=== PATIENT | male | born 1970 | race Caucasian/White ===

== ENCOUNTER 2021-05-27 15:04 | Emergency (ER) | payer OTHER ==
[2021-05-27] MEDS ORDERED: PREDNISONE 50 M50 MG PO (17:02)
[2021-05-27] MEDS ORDERED: CYCLOBENZAPRINE10 MG PO (17:03)
== END 2021-05-27 17:27 | disposition home or self-care (01) ==
LOC: ER1 15:04
DX: M54.12 Radiculopathy, cervical region (principal)
CPT/HCPCS: 96372; 99283; J1100; J1885

== ENCOUNTER 2021-06-23 15:55 | Emergency (ER) | payer OTHER ==
[~2021-06-23 15:55] MED LIST: CYCLOBENZAPRINE10 MG PO; PREDNISONE 50 M50 MG PO
== END 2021-06-23 16:53 | disposition left against medical advice (07) ==
LOC: ER1 15:55
DX: Z53.21 Procedure and treatment not carried out due to patient leaving prior to being seen by health care provider (principal)

== ENCOUNTER → 2021-10-24 | Outpatient (CLI) | payer OTHER | LOC: EXRD 14:03 | DX: J20.9 Acute bronchitis, unspecified (principal); R04.2 Hemoptysis; Z86.11 Personal history of tuberculosis | CPT/HCPCS: 71046 ==

== ENCOUNTER 2021-11-21 14:56 | Emergency (ER) | payer OTHER ==
[2021-11-21 18:02] LABS: HEMOGLOBIN 16.4 gm/dl (14.0-17.5); RED BLOOD COUNT 5.33 M/UL (4.20-5.50); WHITE BLOOD COUNT 13.2 K/UL (4.5-11.0)
[2021-11-21 19:06] LABS: BUN/CREATININE RATIO 35 (0-10)
[2021-11-21] MEDS ORDERED: DIABETA 2.5 MG2.5 MG PO (20:03)
[2021-11-21] MEDS ORDERED: DOXYCYCLINE HY100 MG PO (20:05)
[2021-11-21] MEDS ORDERED: PULMICORT FLEX90 MCG INH (20:05)
== END 2021-11-21 21:05 | disposition home or self-care (01) ==
LOC: ER1 14:56
PROVIDERS: Physician Assistant
DX: E11.65 Type 2 diabetes mellitus with hyperglycemia (principal); Z79.4 Long term (current) use of insulin; J44.9 Chronic obstructive pulmonary disease, unspecified; I10 Essential (primary) hypertension; F17.210 Nicotine dependence, cigarettes, uncomplicated; Z20.822 Contact with and (suspected) exposure to COVID-19
CPT/HCPCS: 71045; 80053; 82009; 82800; 82962; 85025; 96374; 99285; U0002

== ENCOUNTER → 2022-02-25 | Outpatient (CLI) | payer OTHER ==
[~2022-02-25] MED LIST changes: +DIABETA 2.5 MG2.5 MG PO; +DOXYCYCLINE HY100 MG PO; +PULMICORT FLEX90 MCG INH
== END ==
LOC: HEART 5 10:33
DX: J44.9 Chronic obstructive pulmonary disease, unspecified (principal)
CPT/HCPCS: 94060; 94729

== ENCOUNTER 2022-03-20 10:51 | Emergency (ER) | payer OTHER ==
[2022-03-20 13:02] LABS: HEMOGLOBIN 14.9 gm/dl (14.0-17.5); RED BLOOD COUNT 4.83 M/UL (4.20-5.50); WHITE BLOOD COUNT 10.5 K/UL (4.5-11.0)
[2022-03-20 13:20] LABS: BUN/CREATININE RATIO 27 (0-10)
[2022-03-20] MEDS ORDERED: CYCLOBENZAPRINE10 MG PO (14:32)
[2022-03-20] MEDS ORDERED: NAPROSYN500 MG PO (14:32)
== END 2022-03-20 14:55 | disposition home or self-care (01) ==
LOC: ER1 10:51
PROVIDERS: Physician Assistant
DX: M54.42 Lumbago with sciatica, left side (principal); E11.9 Type 2 diabetes mellitus without complications; I10 Essential (primary) hypertension; J44.9 Chronic obstructive pulmonary disease, unspecified; F17.200 Nicotine dependence, unspecified, uncomplicated
CPT/HCPCS: 80053; 81001; 82962; 85025; 96372; 99283; J1100; J1885

== ENCOUNTER → 2022-04-03 | Outpatient (CLI) | payer OTHER ==
[~2022-04-03] MED LIST changes: +NAPROSYN500 MG PO
== END ==
LOC: RAD 10:45
DX: M51.16 Intervertebral disc disorders with radiculopathy, lumbar region (principal)
CPT/HCPCS: 72110

== ENCOUNTER → 2022-05-02 | Outpatient (CLI) | payer OTHER | LOC: EMI 13:00 | DX: M51.26 Other intervertebral disc displacement, lumbar region (principal) | CPT/HCPCS: 72148 ==

== ENCOUNTER 2022-05-31 16:55 | Emergency (ER) | payer OTHER ==
[2022-05-31] MEDS ORDERED: CYCLOBENZAPRINE5 MG PO (22:25)
[2022-05-31] MEDS ORDERED: NAPROSYN500 MG PO (22:25)
== END 2022-05-31 23:24 | disposition home or self-care (01) ==
LOC: ER1 16:55
DX: M54.42 Lumbago with sciatica, left side (principal); G89.29 Other chronic pain; N39.8 Other specified disorders of urinary system; R06.2 Wheezing; Z87.39 Personal history of other diseases of the musculoskeletal system and connective tissue; E11.9 Type 2 diabetes mellitus without complications; I10 Essential (primary) hypertension; J44.9 Chronic obstructive pulmonary disease, unspecified; F17.200 Nicotine dependence, unspecified, uncomplicated; Z79.899 Other long term (current) drug therapy
CPT/HCPCS: 81001; 87086; 96374; 96375; 96376; 99283; J1170; J1885; J2270; J2405; J2930

== ENCOUNTER 2022-06-02 14:50 | Emergency (ER) | payer OTHER ==
[~2022-06-02 14:50] MED LIST changes: +CYCLOBENZAPRINE5 MG PO
[2022-06-02 16:17] LABS: RED BLOOD COUNT 5.14 M/UL (4.20-5.50); WHITE BLOOD COUNT 14.9 K/UL (4.5-11.0)
[2022-06-02 16:36] LABS: BUN/CREATININE RATIO 37 (0-10)
== END 2022-06-02 23:15 | disposition short-term general hospital (02) ==
LOC: ER1 14:50
PROVIDERS: Physician Assistant
DX: G83.4 Cauda equina syndrome (principal); E11.9 Type 2 diabetes mellitus without complications; I10 Essential (primary) hypertension; J44.9 Chronic obstructive pulmonary disease, unspecified; F17.210 Nicotine dependence, cigarettes, uncomplicated
CPT/HCPCS: 51702; 72132; 80053; 82962; 85025; 85652; 86140; 87040; 96374; 96375; 96376; 99285; J1100; J1170; J1885; J2270; J2360; Q9967